=== PATIENT | female | born 1950 | race Two or more races ===

== ENCOUNTER → 2016-09-11 | Day surgery (SDC) | payer OTHER ==
[2016-09-11] VITALS (13 sets, daily range): BP systolic 109–132; BP diastolic 56–78
[~2016-09-11] VITALS: Ht 160 cm; Wt 74.4 kg
[~2016-09-11] MED LIST: Bupivacaine w/Epi 0.5% 30ml Vial INJ ONE; Dexamethasone 4mg/ml vial ONE; Hydromorphone 0.5mg/0.5ml inj ONE; LEVOTHYROXINE150 MCG ORAL; Lidocaine 1% Plain 30 ml INJ ONE; METFORMIN HCL500 M1 ORAL; Midazolam 2mg/2ml Inj ONE; NS Irrig 1000ml IRRIG ONE; NS Irrig 1000ml ONE; Propofol 10mg/ml 20ml IV ONE; ProvayBlue 5mg/ml 10ml amp INJ ONE; Sodium Bicarbonate 8.4% 50ml Inj ONE; Sterile Water Irrig 1000ml IRRIG ONE; fentaNYL 250mcg/5ml ONE
--- NOTE | 2016-09-11 11:09 | Pre-Procedure Note/Attestation ---
Pre-Procedure Note/Attestation Complete Prior to Procedure Procedure Narrative: partial mastectomy with needle localization and axilllary sampling Indications for Procedure Pre-Operative Diagnosis: biopsy confirmed breast carcinoma Attestation I attest that I discussed the nature of the procedure; its benefits; risks and complications; and alternatives (and the risks and benefits of such alternatives ), prior to the procedure, with the patient (or the patient's legal manufacturers service representative). I attest that, if there was a reasonable possibility of needing a blood transfusion, the patient (or the patient's legal manufacturers service representative) was given the [facility] standardized written summary, pursuant to the Arun Tushar Blood Safety Act ([place] Health and Safety Code # 1645, as amended). I attest that I re-evaluated the patient just prior to the surgery and that there has been no change in the patient's H&P, except as documented below: none JENNIFER CAMACHO Sep 11, 2016 11:09
--- NOTE | 2016-09-11 11:53 | Anethesia Preoperative Eval ---
Anesthesia Pre-op PMH/ROS General Date of Evaluation: Sep 11, 2016 Time of Evaluation: 11:00 Anesthesiologist: KIAH ASA Score: ASA 2 Mallampati Score Class I : Soft palate, uvula, fauces, pillars visible Class II: Soft palate, uvula, fauces visible Class III: Soft palate, base of uvula visible Class IV: Only hard plate visible Mallampati Classification: Class II Surgeon: DOUG Diagnosis: BREAST MASS Surgical Procedure: EXCISION MASS L BREAST LYMPHNODE DISSECTION L AXILLA Anesthesia History: none Family History: no anesthesia problems Allergies: Coded Allergies: No Known Allergies (Unverified , 09/10/16) Medications: see eMAR Past Medical History Cardiovascular: Denies: CAD, HTN, MT, arrhythmia, other, valve dz Pulmonary: Denies: COPD, SANDRA, asthma, other Gastrointestinal/Genitourinary: Denies: CRI, ESRD, GERD, other Neurologic/Psychiatric: Denies: CVA, TIA, dementia, depression/anxiety, other Endocrine: Reports: DM HEENT: Denies: [place] (L), [place] (R), cataract (L), cataract (R), glaucoma, other Hematology/Immune: Denies: DVT, anemia, bleeding disorder, other Musculoskeletal/Integumentary: Denies: DDD, DJD, OA, RA, edema, other Anesthesia Pre-op Phys. Exam Physician Exam Last Vital Signs Date Time Temp Pulse Resp B/P Pulse Ox O2 Delivery O2 Flow Rate FiO2 09/11/16 08:35 97.8 63 16 121/72 97 Room Air Constitutional: NAD Neurologic: CN 2-12 intact Cardiovascular: RRR Respiratory: CTA Gastrointestinal: S/NT/ND Airway Exam Mallampati Score: Class II MO: full ROM: full Teeth: intact Dentures: no lower, no upper Anesthesia Pre-op A/P Risk Assessment & Plan Assessment: ASA2 Plan: GA Status Change Before Surgery: No Pre-Antibiotics Drug: ANCEF Given Within 1 Hr of Incision: Yes Time Given: 11:30 CANDELARIO DUPONT M.D. Sep 11, 2016 11:53
--- NOTE | 2016-09-11 12:02 | 48 Hour Post Anesthesia Eval ---
Post Anesthesia Evaluation Procedure: BREAST MASS EXCISION AXILLARY L DISSECTION Date of Evaluation: Sep 11, 2016 Time of Evaluation: 14:00 Blood Pressure Systolic: 121 0: 70 Pulse Rate: 88 Respiratory Rate: 14 Temperature (Fahrenheit): 98 O2 Sat by Pulse Oximetry: 99 Airway: patent Nausea: No Vomiting: No Pain Intensity: 2 Hydration Status: adequate Cardiopulmonary Status: WNL Mental Status/LOC: patient returned to baseline Post-Anesthesia Complications: 0 Follow-up care needed: ready to discharge CANDELARIO DUPONT M.D. Sep 11, 2016 12:02
--- NOTE | 2016-09-11 12:02 | Immediate Post-Op Evaluation ---
Immediate Post-Op Evalulation Immediate Post-Op Evalulation Procedure: BREAST MASS EXCISION AXILLARY L DISSECTION Date of Evaluation: Sep 11, 2016 Time of Evaluation: 12:45 IV Fluids: 700 Blood Products: 0 Estimated Blood Loss: 20 Urinary Output: 0 Blood Pressure Systolic: 115 Blood Pressure Diastolic: 56 Pulse Rate: 97 Respiratory Rate: 12 O2 Sat by Pulse Oximetry: 100 Temperature (Fahrenheit): 98 Pain Score (1-10): 2 Nausea: No Vomiting: No Complications 0 Patient Status: awake, patent, none Hydration Status: adequate Drug: ANCEF Given Within 1 Hr of Incision: Yes Time Given: 11:30 CANDELARIO DUPONT M.D. Sep 11, 2016 12:01
[2016-09-11] MEDS: Hydromorphone 0.5mg/0.5ml inj IVP PRN ×2 (12:55→13:33)
--- NOTE | 2016-09-11 12:59 | Brief Operative Note ---
Immediate Post Operative Note Operative Note Pre-op Diagnosis: biopsy confirmed breast carcinoma Post-op Diagnosis: same as pre-op Surgeon: Denisa Camacho Anesthesia: general Specimen: yes Complications: none Condition: stable Estimated Blood Loss: minimal Implant(s) used?: No JENNIFER CAMACHO Sep 11, 2016 12:59
--- NOTE | 2016-09-11 23:38 | Operative Note - Dictated ---
DATE OF OPERATION: 09/11/2016 OPERATIVE SURGEON: Cornel Diego M.D. ANESTHESIOLOGIST: Dr. Lund. PREOPERATIVE DIAGNOSIS: Biopsy-proven left breast carcinoma, nonpalpable. POSTOPERATIVE DIAGNOSIS: Biopsy-proven left breast carcinoma, nonpalpable. PROCEDURE: Left partial mastectomy with prior needle localization and left axillary sampling by sentinel node technique. OPERATIVE PROCEDURE: The patient was informed about the details of the procedure and appropriate consent obtained. The patient was taken to the operating room. Chlorhexidine prep was done around the localizing needle in the inferior aspect of the left breast centrally. The axilla was prepped as well. Time-out was done. 1 g of Ancef was given. The patient was positioned with the left arm extended. A 4-cm incision was made in the inframammary crease adjacent to the localizing wire and a flap was developed in each direction to expose the breast tissue in that area, taking care not to dislodge the wire. A generous excision of tissue was done in a circumferential pattern around the wire down to the chest wall, and the tissue was submitted to Radiology and confirmed to contain the clip and the end of the wire. Bleeders were controlled with cautery and the wound was then repaired with deeper sutures of 3-0 Vicryl and subcutaneous 3-0 Vicryl combined with subcuticular 4-0 Monocryl. Attention was then turned to the left axilla where a 3-cm incision was made and a flap was developed. Prior to the prepping, 3 mL of methylene blue was injected into the breast and subcutaneous subdermal tissue near the tumor, and the breast was massaged for 2 minutes. As I dissected deeper into the axilla, I was able to identify a large axillary lymph node that contained blue dye, which was beneath the deep axillary fascia in the fibroareolar tissue of the lymphatic chain. This node was carefully dissected out in order to be presented to Pathology intact. Bleeders were carefully controlled. The intercostobrachial II nerve was not sacrificed and the closure was then done with deeper 3-0 Vicryl in the subcutaneous layer and 4-0 Monocryl subcuticular in the skin. Both incisions were covered with Dermabond adhesive and the operative area was infiltrated with 0.5% Marcaine with dilute epinephrine. Counts were correct and the patient had no complications, and minimal pain. When she awakened, she will be discharged from the recovery room later today. Cornel Diego M.D. DR: NEHEMIAH JOB#: [id number] CC:
[2016-09-12 08:05] VITALS: BP 121/70
== END | disposition home or self-care (01) ==
LOC: SDS 07:37
DX: C50.912 Malignant neoplasm of unspecified site of left female breast (principal); E78.2 Mixed hyperlipidemia; E11.9 Type 2 diabetes mellitus without complications; I10 Essential (primary) hypertension; E03.9 Hypothyroidism, unspecified; K21.9 Gastro-esophageal reflux disease without esophagitis; Z79.84 Long term (current) use of oral hypoglycemic drugs
CPT/HCPCS: 19281; 19301; 38525; 82962; J0690; J1100; J1170; J2001; J2250; J2405; J2704; J3010; J3490; Q9968; 94003; 94150